=== PATIENT | female | born 1955 | race Two or more races ===

== ENCOUNTER 2019-02-28 13:12 | Emergency (ER) | payer MEDICAID, OTHER ==
[2019-02-28 13:42] VITALS: BP 150/60
[2019-02-28] MEDS ORDERED: LIDOCAINE 1% HCL (LOCAL ANESTH.) INJ 20ML MDV IJ ONE (14:00)
== END 2019-02-28 15:26 | disposition home or self-care (01) ==
LOC: ER 13:20
DX: S61.511A Laceration without foreign body of right wrist, initial encounter (principal); E11.22 Type 2 diabetes mellitus with diabetic chronic kidney disease; N18.9 Chronic kidney disease, unspecified; Z94.0 Kidney transplant status; W22.8XXA Striking against or struck by other objects, initial encounter; Y93.89 Activity, other specified; Y99.8 Other external cause status; Y92.89 Other specified places as the place of occurrence of the external cause
CPT/HCPCS: 12002; 73110; 99283; J2001